=== PATIENT | female | born 1945 | race Caucasian/White ===

== ENCOUNTER 2023-09-05 13:28 | Emergency (ER) | payer MEDICARE ==
[2023-09-05 14:08] VITALS: BP 150/85; RESP 20; TEMP 98.3
--- NOTE | 2023-09-05 14:21 | ED ---
Lower Extremity Injury HPI - General Source: patient, family, RN notes reviewed Mode of arrival: wheelchair Limitations: no limitations <Shea Steven - Last Filed: 09/05/23 14:14> <Heriberto Funez - Last Filed: 10/02/23 19:38> - General Chief Complaint: Extremity Injury, Lower Stated Complaint: Leg pain-cant walk - History of Present Illness Initial Comments: patient is a 77-year-old female presented ER with left ankle swelling and calf swelling. Patient states that on for about 4 days. Patient denies any chest pain or shortness of breath. (Shea Steven) 77-year-old female presenting to the ED with a chief complaint of leg pain. Patient states for the past 4-5 weeks has had intermittent pain of her right lower leg. Patient states pain seems to originate from her knee and shoots both up and down her leg. Patient does note a history of back problems. Patient states that she saw an orthopedic surgeon for this and had reportedly negative workup of her knee. Patient states she was told symptoms were likely related to her back however she notes that that orthopedic surgeon does not specialize in t he back. Denies any saddle anesthesia or incontinence. No chest pain shortness breath. No other complaints. (Heriberto Funez) - Related Data Previous Rx's Medication Instructions Recorded Lidocaine 5% Patch [Lidoderm 5% 1 patch TOPICAL DAILY PRN #10 patch 09/05/23 Patch] Allergies Allergy/AdvReac Type Severity Reaction Status Date / Time Iodinated Contrast Media Allergy Rash/Hives Verified 09/05/23 14:04 Review of Systems ROS Other: All systems not noted in ROS Statement are negative. <Shea Steven - Last Filed: 09/05/23 14:14> ROS Other: All systems not noted in ROS Statement are negative. <Heriberto Funez - Last Filed: 10/02/23 19:38> ROS Statement: Those systems with pertinent positive or pertinent negative responses have been documented in the HPI. Past Medical History Past Medical History: Coronary Artery Disease (CAD), Hyperlipidemia, Thyroid Disorder Additional Past Medical History / Comment(s): polythycemia History of Any Multi-Drug Resistant Organisms: None Reported Past Surgical History: Cholecystectomy, Hysterectomy, Orthopedic Surgery, Tonsillectomy Additional Past Surgical History / Comment(s): partial thyroid Past Psychological History: No Psychological Hx Reported Smoking Status: Never smoker Past Alcohol Use History: None Reported Past Drug Use History: None Reported <Shea Steven - Last Filed: 09/05/23 14:14> General Exam Limitations: no limitations <Shea Steven - Last Filed: 09/05/23 14:14> General appearance: alert, in no apparent distress Eye exam: Present: normal appearance Respiratory exam: Present: normal lung sounds bilaterally Cardiovascular Exam: Present: regular rate, normal rhythm GI/Abdominal exam: Present: soft Extremities exam: Present: other (Strength and sensation equal and intact in bilateral lower extremities. No pitting edema bilateral lower extremities. DP/PT pulses 1+ bilaterally.) Neurological exam: Present: alert, oriented X3 Skin exam: Present: warm, dry <Heriberto Funez - Last Filed: 10/02/23 19:38> - General Exam Comments Initial Comments: Visual Physical Exam Vital signs reviewed General: Well-appearing, nontoxic, no acute distress. Head: Normocephalic, atraumatic Eyes: PERRLA, EOMI ENT: Airway patent Chest: Nonlabored breathing Skin: No visual rash, normal skin tone Neuro: Alert and oriented 3 Musculoskeletal: No gross abnormalities (Shea Steven) Course Vital Signs 09/05/23 09/05/23 13:57 18:40 Temperature 98.3 F Pulse Rate 71 83 Respiratory 20 20 Rate Blood Pressure 150/85 O2 Sat by Pulse 99 97 Oximetry Medical Decision Making <Shea Steven - Last Filed: 09/05/23 14:14> <Heriberto Funez - Last Filed: 10/02/23 19:38> - Medical Decision Making I performed the quick note portion of the exam. Electronically signed by Shea Steven PA-C (Shea Steven) Was pt. sent in by a medical professional or institution (JOCELYN Molina, BANK PRESIDENT, urgent care, hospital, or fci...) When possible be specific @ -No Did you speak to anyone other than the patient for history (EMS, parent, family, police, friend...)? What history was obtained from this source @ -No Did you review nursing and triage notes (agree or disagree)? Why? @ -I reviewed and agree with nursing and triage notes Were old charts reviewed (outside hosp., previous admission, EMS record, old EKG, old radiological studies, urgent care reports/EKG's, fci records)? Report findings @ -No old charts were reviewed Differential Diagnosis (chest pain, altered mental status, abdominal pain women, abdominal pain men, vaginal bleeding, weakness, fever, dyspnea, syncope, headache, dizziness, GI bleed, back pain, seizure, CVA, palpatations, mental health, musculoskeletal)? @ -Differential Musculoskeletal Muscular strain, contusion, ligament sprain, fracture, arthritis, septic arthritis, bursitis, cellulitis, muscle spasm, nerve compression, DVT, arterial occlusion, herpes zoster, electrolyte abnormality, tumor.... This is not meant to be in all inclusive list EKG interpreted by me (3pts min.). @ -None X-rays interpreted by me (1pt min.). @ -None done CT interpreted by me (1pt min.). @ -None done U/S interpreted by me (1pt. min.). @ -None done What testing was considered but not performed or refused? (CT, X-rays, U/S, labs)? Why? @ -None What meds were considered but not given or refused? Why? @ -None Did you discuss the management of the patient with other professionals (professionals i.e. , PA, BANK PRESIDENT, lab, RT, psych nurse, social work msw, mold mover, teacher, contract officer, case work aide)? Give summary @ -No Was smoking cessation discussed for >3mins.? @ -No Was critical care preformed (if so, how long)? @ -No Were there social determinants of health that impacted care today? How? (Homelessness, low income, unemployed, alcoholism, drug addiction, transportation, low edu. Level, literacy, decrease access to med. care, prison, rehab)? @ -No Was there de-escalation of care discussed even if they declined (Discuss DNR or withdrawal of care, Hospice)? DNR status @ -No What co-morbidities impacted this encounter? (DM, HTN, Smoking, COPD, CAD, Cancer, CVA, ARF, Chemo, Hep., AIDS, mental health diagnosis, sleep apnea, morbid obesity)? @ -None Was patient admitted / discharged? Hospital course, mention meds given and route, prescriptions, significant lab abnormalities, going to OR and other pertinent info. @ -Discharged 77-year-old female presenting to the ED with a chief complaint of right knee pain. Patient reports urinary had a negative workup for this including imaging before imaging deferred at this time. Provided referral to pain management and orthopedics. Discharged home in stable condition. Discussed return precautions with patient). Undiagnosed new problem with uncertain prognosis? @ -No Drug Therapy requiring intensive monitoring for toxicity (Heparin, Nitro, Insulin, Cardizem)? @ -No Were any procedures done? @ -No Diagnosis/symptom? @ -Leg pain Acute, or Chronic, or Acute on Chronic? @ -Acute Uncomplicated (without systemic symptoms) or Complicated (systemic symptoms)? @ -Uncomplicated Side effects of treatment? @ -No Exacerbation, Progression, or Severe Exacerbation? @ -No Poses a threat to life or bodily function? How? (Chest pain, [place], [place], pneumonia, PE, COPD, DKA, ARF, appy, cholecystitis, CVA, Diverticulitis, Homicidal, Suicidal, threat to staff... and all critical care pts) @ -No (Heriberto Funez) Disposition <Shea Steven - Last Filed: 09/05/23 14:14> Is patient prescribed a controlled substance at d/c from ED?: No Time of Disposition: 18:07 <Heriberto Funez - Last Filed: 10/02/23 19:38> Clinical Impression: Leg pain Disposition: HOME SELF-CARE Condition: Good Additional Instructions: Please return to the Emergency Department if symptoms worsen or any other concerns. Please follow up with pain management and orthopedics. Prescriptions: Lidocaine 5% Patch [Lidoderm 5% Patch] 1 patch TOPICAL DAILY PRN #10 patch PRN Reason: Pain Referrals: Nonstaff,Physician [REFERRING] - 1-2 days Mc Tejada MD [STAFF PHYSICIAN] - 1-2 days Dylon Galaviz DO [Doctor of Osteopathic Medicine] - 1-2 days
--- NOTE | 2023-09-05 15:45 | US ---
EXAMINATION TYPE: US venous doppler duplex LE RT DATE OF EXAM: 09/05/2023 3:37 PM COMPARISON: NONE CLINICAL INDICATION: Female, 77 years old with history of swelling; right leg pain, no h/o dvt SIDE PERFORMED: Right TECHNIQUE: The lower extremity deep venous system is examined utilizing real time linear array sonog royce with graded compression, doppler sonography and color-flow sonography. VESSELS IMAGED: Common Femoral Vein Deep Femoral Vein Greater Saphenous Vein * Femoral Vein Popliteal Vein Small Saphenous Vein * Proximal Calf Veins (* superficial vessels) Right Leg: The deep venous system of the right lower extremity from the right common femoral vein to the proximal calf veins is patent and compressible with augmentable flow and normal waveforms. IMPRESSION There is no evidence of right lower extremity DVT from the common femoral vein to the proximal calf v eitasha.
[2023-09-05] MEDS ORDERED: ORPHENADRINE 30 MG/ML 2 ML VIAL IM STA (18:10)
[2023-09-05] MEDS ORDERED: KETOROLAC 15 MG/ML 1 ML VIAL IM STA (18:10)
[2023-09-05 18:44] VITALS: PULSE 83
== END 2023-09-05 18:43 | disposition home or self-care (01) ==
LOC: EC 13:28
DX: M79.604 Pain in right leg (principal); I25.10 Atherosclerotic heart disease of native coronary artery without angina pectoris; Z91.041 Radiographic dye allergy status
CPT/HCPCS: 93971; 99283; 96372 ×2; J2360; J1885